=== PATIENT | male | born 2000 | race Caucasian/White ===

== ENCOUNTER 2025-04-04 22:25 | Emergency (ER) | payer SELFPAY ==
[2025-04-04 22:28] VITALS: BP 135/75
[2025-04-05 01:08] VITALS: BMI 30.7
[2025-04-05 01:15] VITALS: BP 131/75
--- NOTE | 2025-04-05 01:27 | ED.GENMED ---
History of Present Illness
General
Chief Complaint: Insect Sting
Source: patient
Exam Limitations: none
Time Seen by Provider: 04/05/25 01:08
History of Present Illness
History of Present Illness:
24-year-old male bee sting to left forearm and left foot 36 hours ago swelling despite Benadryl last about 10 hours ago, no lip swelling no shortness of breath no fevers
Past History
Past History
ED Past Medical History: None
ED Past Surgical History: None
Social History
Tobacco: Non-smoker
Drug: None
Living: with family
Employment: Employed
Review of Systems
Review of Systems
All Other Systems: Not applicable
Constitutional: Denies not done
Respiratory: Reports no symptoms; Denies trouble breathing
Cardiac: Reports no symptoms
Musculoskeletal: Reports muscle stiffness and edema
Skin: Reports itching
Phy Exam
Physical Exam
Physical Exam:
Physical Exam
General: no apparent distress, not acutely ill
Neck: No lip swelling no tongue
Heart: s1/s2 regular rate and rhythm, no murmur. equal radial pulses.
Lungs: no acute respiratory distress. No wheezing
Neuro: alert and oriented. no focal neurological deficits
Skin: Described below
Psychiatric: well kept. interactive and cooperative
Extremities: Swelling of the left forearm and left ankle no cellulitic changes
Course
Orders/Labs/Results
Orders:
Orders
04/05/25 01:12
Diphenhydramine [Benadryl] 50 mg PO NOW STA
EPINEPHrine PF [Adrenalin] 0.3 mg IM NOW STA
Prednisone [Deltasone] 50 mg PO NOW STA
Vital Signs
Initial and Last Documented VS:
Initial Vital Signs
Temp Pulse Resp BP Pulse Ox
98.2 F 76 18 135/75 98
04/04/25 22:28 04/04/25 22:28 04/04/25 22:28 04/04/25 22:28 04/04/25 22:28
Last Documented Vital Signs
Temp Pulse Resp BP Pulse Ox
98.2 F 71 18 131/75 99
04/04/25 22:28 04/05/25 01:15 04/05/25 01:15 04/05/25 01:15 04/05/25 01:28
MDM/Problems Addressed
Differential Diagnosis Includes:
Bee sting without signs of cellulitis, without signs of anaphylaxis
MDM/Problems Addressed:
Swelling
*Pulse Oximetry
SaO2: 99
Oxygen Mode of Delivery: Room air
Patient hypoxic: no
*Critical Care Note
Total Time (30-74mins, 75-104mins- exclusive of procedures): Not Applicable
Update Note
Update Note:
Update patient symptoms despite Benadryl will add steroids give a dose of epi no convincing symptoms of cellulitis
ED Attending Note
-
Portions of this chart may have been created with voice recognition software.� Occasional wrong word or��sound alike� substitutions may have occurred due to the inherent limitations of voice recognition software.
Discharge Plan
Departure
Patient Disposition: Home (Routine Discharge)
Date of Disposition: 04/05/25
Time of Disposition: 01:13
Patient with high blood pressure during this ER visit?: No
Condition: Good
Discharge Problem:
Accidental bee sting
Instructions: Insect Bites and Stings (DC)
Prescriptions:
New
prednisone 50 mg tablet
50 mg PO DAILY Qty: 5 0RF
diphenhydramine HCl [Benadryl] 25 mg capsule
25 mg PO TID PRN (Reason: itching) Qty: 20 0RF
Referrals:
UNKNOWN - PT DOES,NOT KNOW [Family Provider]
[facility] [Provider Group] - Next open appointment
Interventions
Interventions:
*Risk Screen - Suicide Last Done: 04/04/25 22:28
*General Assessment Last Done: 04/04/25 22:28
*Neglect/Abuse Screening Last Done: 04/04/25 22:28
*ED- Fall Risk Assessment Last Done: 04/05/25 01:10
*ED COVID-19 Vaccine History Last Done: 04/05/25 01:10
ED- Cardiac Assessment Last Done: 04/05/25 01:10
ED- Pulmonary Assessment Last Done: 04/05/25 01:10
ED-Skin Assessment Last Done: 04/05/25 01:10
Discharge Date and Time
Print Language: [place]
[2025-04-05] MEDS: ADRENALIN 0.3 MG IM (01:31)
[2025-04-05] MEDS: BENADRYL 50 MG PO (01:31)
[2025-04-05] MEDS: DELTASONE 50 MG PO (01:31)
[2025-04-05 01:45] VITALS: BP 139/82
== END 2025-04-05 02:08 | disposition home or self-care (01) ==
LOC: EMR 22:25
PROVIDERS: EMERGENCY PHYSICIAN Emergency Medicine
DX: T63.441A Toxic effect of venom of bees, accidental (unintentional), initial encounter (principal)
CPT/HCPCS: 99282; 96372